=== PATIENT | female | born 1960 | race Caucasian/White ===

== ENCOUNTER → 2017-01-21 | Outpatient (CLI) | payer BC ==
--- NOTE | 2017-01-21 09:54 | RAD ---
DATE: 01/21/2017 EXAM: DIGITAL SCREEN BILAT W/CAD HISTORY: Routine screening COMPARISON: 01/21/2016 This study was interpreted with the benefit of Computerized Aided Detection (CAD). The breast parenchyma shows scattered fibroglandular densities. Breast parenchyma level B. FINDINGS: No new or enlarging breast densities are seen. Minimal benign type calcification is present. No suspicious microcalcifications are identified. IMPRESSION: Stable mammograms without evidence of malignancy. BI-RADS CATEGORY: 2 BENIGN FINDING(S) RECOMMENDED FOLLOW-UP: 12M 12 MONTH FOLLOW-UP PQRS compliance statement: Patient information was entered into a reminder system with a target due date for the next mammogram. Mammography is a sensitive method for finding small breast cancers, but it does not detect them all and is not a substitute for careful clinical examination. A negative mammogram does not negate a clinically suspicious finding and should not result in delay in biopsying a clinically suspicious abnormality. "Our facility is accredited by the [employer] Mammography [employer]."
== END | disposition home or self-care (01) ==
LOC: MAMMO 09:10
PROVIDERS: ATTEND Obstetrics & Gynecology
DX: Z12.31 Encounter for screening mammogram for malignant neoplasm of breast (principal)
CPT/HCPCS: G0202; 77067

== ENCOUNTER → 2018-01-28 | Outpatient (CLI) | payer BC ==
--- NOTE | 2018-01-29 08:45 | RAD ---
DATE: 01/28/2018 EXAM: MAMMO CECE SCREENING BILATERAL HISTORY: Routine screening COMPARISON: 01/21/2017 This study was interpreted with the benefit of Computerized Aided Detection (CAD). Breast Density: SCATTERED The breast parenchyma shows scattered fibroglandular densities. Breast parenchyma level B. FINDINGS: 2-D and 3-D tomosynthesis imaging was performed in CC and MLO projections. No new or enlarging breast densities are seen. No suspicious microcalcifications are evident. IMPRESSION: Stable mammograms without evidence of malignancy. BI-RADS CATEGORY: 2 BENIGN FINDING(S) RECOMMENDED FOLLOW-UP: 12M 12 MONTH FOLLOW-UP PQRS compliance statement: Patient information was entered into a reminder system with a target due date for the next mammogram. Mammography is a sensitive method for finding small breast cancers, but it does not detect them all and is not a substitute for careful clinical examination. A negative mammogram does not negate a clinically suspicious finding and should not result in delay in biopsying a clinically suspicious abnormality. "Our facility is accredited by the [employer] Mamm[employer]."
== END | disposition home or self-care (01) ==
LOC: MAMMO 09:07
PROVIDERS: ATTEND Obstetrics & Gynecology
DX: Z12.31 Encounter for screening mammogram for malignant neoplasm of breast (principal)
CPT/HCPCS: 77063; 77067

== ENCOUNTER → 2019-02-01 | Outpatient (CLI) | payer BC ==
--- NOTE | 2019-02-01 16:23 | RAD ---
DATE: 02/01/2019. EXAM: MAMMO CECE SCREENING BILATERAL. HISTORY: Routine mammographic screening. COMPARISON: 01/28/2018. This study was interpreted with the benefit of Computerized Aided Detection (CAD). FINDINGS: Breast Density: FATTY The breast parenchyma is primarily fatty replaced. Breast parenchyma level density A.. There are no suspicious masses, microcalcifications or architectural distortion. The parenchymal pattern is stable. BI-RADS CATEGORY: 2 BENIGN FINDING(S). RECOMMENDED FOLLOW-UP: 12M 12 MONTH FOLLOW-UP. PQRS compliance statement: Patient information was entered into a reminder system with a target due date 02/02/2020 for the next mammogram. Mammography is a sensitive method for finding small breast cancers, but it does not detect them all and is not a substitute for careful clinical examination. A negative mammogram does not negate a clinically suspicious finding and should not result in delay in biopsying a clinically suspicious abnormality. "Our facility is accredited by the [employer] Mammography [employer]."
== END | disposition home or self-care (01) ==
LOC: MAMMO 08:28
PROVIDERS: ATTEND Obstetrics & Gynecology
DX: Z12.31 Encounter for screening mammogram for malignant neoplasm of breast (principal)
CPT/HCPCS: 77063; 77067

== ENCOUNTER → 2020-02-06 | Outpatient (CLI) | payer BC ==
--- NOTE | 2020-02-07 15:29 | RAD ---
DATE: 02/06/2020 12:30 PM EXAM: MAMMO CECE SCREENING BILATERAL HISTORY: Screening COMPARISON: 02/01/2019, 01/28/2018 Bilateral CC and MLO views of the breasts were performed. Bilateral breast tomosynthesis was performed in CC and MLO projections. This study was interpreted with the benefit of Computerized Aided Detection (CAD). FINDINGS: Breast Density: FATTY The Breast Parenchyma is primarily fatty replaced. Breast parenchyma level density A. No suspicious masses, microcalcifications or architectural distortion is present to suggest malignancy in either breast. The visualized axillae are unremarkable. IMPRESSION: No mammographic evidence of malignancy. BI-RADS CATEGORY: 1 NEGATIVE RECOMMENDED FOLLOW-UP: 12M 12 MONTH FOLLOW-UP Annual screening mammography is recommended, unless clinically indicated sooner based on symptoms or change in physical exam. PQRS compliance statement: Patient information was entered into a reminder system with a target due date for the next mammogram. Mammography is a sensitive method for finding small breast cancers, but it does not detect them all and is not a substitute for careful clinical examination. A negative mammogram does not negate a clinically suspicious finding and should not result in delay in biopsying a clinically suspicious abnormality. "Our facility is accredited by the [employer] Mammography [employer]."
== END ==
LOC: MAMMO 12:23
PROVIDERS: ATTEND Obstetrics & Gynecology
DX: Z12.31 Encounter for screening mammogram for malignant neoplasm of breast (principal)
CPT/HCPCS: 77063; 77067

== ENCOUNTER → 2021-02-11 | Outpatient (CLI) | payer BC ==
--- NOTE | 2021-02-11 11:46 | RAD ---
BILATERAL DIGITAL SCREENING 2-D AND 3-D MAMMOGRAM INDICATION: Routine screening COMPARISON: 02/06/2020, 02/01/2019, 01/28/2018, 01/21/2017 Interpretation was made using CAD. FINDINGS: Breast Density: There are scattered areas of fibroglandular density. RIGHT BREAST: There is a incompletely circumscribed slightly upper retroareolar asymmetry approximate ly 2 cm from the nipple. No suspicious calcifications. LEFT BREAST: No suspicious masses, calcifications or areas of architectural distortion are seen. IMPRESSION: 1. Slightly upper retroareolar right breast asymmetry. No evidence of malignancy in the left breast. ASSESSMENT: BI-RADS 0: Incomplete -- Need Additional Imaging Evaluation and/or Prior Mammograms for C omparison. RECOMMENDATION: Diagnostic right breast ultrasound for further evaluation. The facility will notify the patient of the results via mail. Patient information will be entered int o the mammography reminder system with a target recall date for the next mammogram. A reminder letter will be generated by the facility. Electronically signed by: Jas Huntley MD (02/11/2021 11:43 AM) [id number]
== END ==
LOC: MAMMO 10:09
PROVIDERS: ATTEND Nurse Practitioner Women's Health
DX: Z12.31 Encounter for screening mammogram for malignant neoplasm of breast (principal)
CPT/HCPCS: 77063; 77067

== ENCOUNTER → 2021-02-15 | Outpatient (CLI) | payer BC ==
--- NOTE | 2021-02-15 12:50 | RAD ---
EXAM: Right breast sonogram. HISTORY: 60-year-old female presents for evaluation of asymmetry within the right breast demonstrated on a mammogram dated 02/11/2021. TECHNIQUE: Sonographic imaging of the right breast targeted to the site of mammographic nodularity wa s performed. COMPARISON: 02/11/2021 and 02/06/2020. FINDINGS: There is a small oval hypoechoic lesion with internal echoes at the 11:00 position 2 cm fro m the nipple measuring 4.2 x 2.6 x 2.7 mm. This demonstrated no internal blood flow, posterior shadow ing architectural distortion. The imaging appearance favors a tiny complicated cyst or focally dilate d duct. This corresponds with the location and size of asymmetry of concern on the prior screening ma mmogram. No suspicious lesion is seen. IMPRESSION: 1. 4.2 mm suspected complicated cyst or focally dilated duct at the anterior 11:00 position of the ri ght breast, likely accounting for the mammographic asymmetry of concern. 2. BI-RADS Category 3: Probably benign finding(s). Precautionary short term follow up with a diagnost ic right breast mammogram and sonogram in 6 months is recommended to confirm stability and concordanc e between the mammographic and sonographic findings. Electronically signed by: Kaycee Manuel MD (02/15/2021 12:47 PM) [id number]
== END ==
LOC: US 12:21
PROVIDERS: ATTEND Nurse Practitioner Women's Health
DX: N64.89 Other specified disorders of breast (principal)
CPT/HCPCS: 76641

== ENCOUNTER → 2021-08-05 | Outpatient (CLI) | payer BC ==
--- NOTE | 2021-08-05 11:06 | RAD ---
EXAM: Right breast diagnostic mammogram with tomosynthesis; right breast sonogram. HISTORY: 61-year-old female presents for follow-up evaluation of findings within the right breast dem onstrated on a mammogram and sonogram performed 02/11/2021 and 02/15/2021. TECHNIQUE: Full-field digital craniocaudal and mediolateral oblique 2D and 3D tomosynthesis images of the right breast are obtained for evaluation. Computer aided detection was applied. Sonographic imag ing of the right breast targeted to the site of prior concern was also performed. COMPARISON: 02/09/2021, 02/15/2021, 02/06/2020 BREAST PARENCHYMAL DENSITY: Level A - Mostly fat. FINDINGS: There is a stable nodular density within the anterior 10:00 position of the right breast. T here is no new suspicious mammographic finding. There is no suspicious calcification or architectural distortion. Sonographic imaging of the right breast demonstrates a stable benign 4 mm focally dilated duct or cys t containing debris at the anterior 10:00 position, corresponding with the mammographic finding of co ncern. There is no new suspicious sonographic finding. IMPRESSION: 1. Stable suspected small benign focally dilated duct or cyst at the anterior 10:00 position of the r ight breast. No new suspicious mammographic finding. 3. BI-RADS Category 2: Benign finding(s). RECOMMENDATION: The patient will be due for bilateral mammography in 6 months according to a previous ly established mammography interval. If your mammogram demonstrates that you have dense breast tissue, which could hide abnormalities, and if you have other risk factors for breast cancer that have been identified, you might benefit from s upplemental screening tests that may be suggested by your ordering physician. Dense breast tissue, i n and of itself, is a relatively common condition. This information is not provided to cause undue c oncern, but rather to raise your awareness and to promote discussion with your physician regarding th e presence of other risk factors, in addition to dense breast tissue. A report of your mammography re sults will be sent to you and your physician. You should contact your physician if you have any ques tions or concerns regarding this report. Mammography is a sensitive method for finding small breast cancers, but it does not detect them all a nd is not a substitute for careful clinical examination. A negative mammogram does not negate a clin ically suspicious finding and should not result in delay in biopsying a clinically suspicious abnorma lity. PQRS compliance statement - Patient information was entered into a reminder system with a target due date for the next mammogram. "Our facility is accredited by the [employer]amm[employer]." Electronically signed by: Kaycee Manuel MD (08/05/2021 11:04 AM) [id number]
== END ==
LOC: MAMMO 10:37
PROVIDERS: ATTEND Obstetrics & Gynecology
DX: N64.89 Other specified disorders of breast (principal)
CPT/HCPCS: 76641; 77065; G0279; 77061